=== PATIENT | female | born 1990 ===

== ENCOUNTER → 2019-10-07 | Outpatient (CLI) | payer BC ==
[~2019-10-07] MED LIST: BCP; IBUP200; IBUP800 PO; NYSTRI30T TOP; RXTRAM50 PO; Verotin-Gr Cap1 EACH PO
== END | disposition home or self-care (01) ==
LOC: LAB 10:30 → LAB SHORT 10:30
DX: N39.0 Urinary tract infection, site not specified (principal)
CPT/HCPCS: 87086